=== PATIENT | female | born 1960 | race Caucasian/White ===

== ENCOUNTER 2024-01-19 12:47 | Emergency (ER) | payer MEDICARE, OTHER ==
[~2024-01-19] VITALS: Ht 172.7 cm; Wt 57.5 kg
[2024-01-19] MEDS ORDERED: ATOR1TAB21 PO (13:07)
[2024-01-19 16:31] VITALS: BP 139/63; TEMP 98.2; O2SAT 99
[2024-01-19] MEDS: RABIES IMMUNE GLOBULIN 1500 INTERNATIONAL UNIT/5ML VIAL IM.IMMUN ONE (16:35)
[2024-01-19] MEDS: RABIES VACCINE HUMAN 2.5 INTERNATIONAL UNITS/ML VIAL IM ONE (16:38)
== END 2024-01-19 17:07 | disposition home or self-care (01) ==
LOC: M ED 12:47
DX: Z29.14 Encounter for prophylactic rabies immune globulin (principal); Z23 Encounter for immunization; Z79.899 Other long term (current) drug therapy

== ENCOUNTER 2024-01-22 07:51 | Emergency (ER) | payer MEDICARE, OTHER ==
[~2024-01-22] VITALS: Ht 172.7 cm; Wt 57.6 kg
[~2024-01-22 07:51] MED LIST: ATOR1TAB21 PO
[2024-01-22 07:52] VITALS: BP 134/74; TEMP 98; O2SAT 100
[2024-01-22] MEDS: RABIES VACCINE HUMAN 2.5 INTERNATIONAL UNITS/ML VIAL IM ONE (08:31)
== END 2024-01-22 08:40 | disposition home or self-care (01) ==
LOC: M ED 07:51
DX: Z29.14 Encounter for prophylactic rabies immune globulin (principal); E06.9 Thyroiditis, unspecified; E78.5 Hyperlipidemia, unspecified; Z23 Encounter for immunization; Z79.899 Other long term (current) drug therapy